=== PATIENT | female | born 1970 | race Caucasian/White ===

== ENCOUNTER → 2022-01-18 13:15 | Outpatient (CLI) | payer OTHER, SELFPAY ==
--- NOTE | 2022-01-18 13:20 | DI.RAD.S_ITS ---
PROCEDURE: XR HAND RT MIN 3V INDICATIONS: flexion deformity TECHNIQUE: 3 views of the hand(s) acquired. COMPARISON: None. FINDINGS: Bones: No fractures or dislocations. Carpal bones are normally aligned. No suspicious bony lesions. Soft tissues: No suspicious soft tissue calcifications. IMPRESSION: No right hand fracture or dislocation. No suspicious bony lesions. No gross bony erosive changes. No gross soft tissue abnormalities. Dictated by: Denny Chacko M.D. on 01/18/2022 at 14:59 Approved by: Denny Chacko M.D. on 01/18/2022 at 15:00
== END ==
PROVIDERS: PCP Family Medicine; Referring Provider Student in an Organized Health Care Education/Training Program; Visit Provider Student in an Organized Health Care Education/Training Program
DX: M21.241 Flexion deformity, right finger joints (principal)
CPT/HCPCS: 73130

== ENCOUNTER → 2022-01-19 10:01 | Outpatient (CLI) | payer OTHER, SELFPAY ==
[2022-01-19 12:16] LABS: Add Manual Diff / Slide Review NO; Basophils Absolute Auto 0 /uL (0-100); Eosinophils Absolute Auto 0 /uL (0-450); Eosinophils Percent Auto 0.8 % (2-4); Hematocrit 41.5 % (36-46); Hemoglobin 14.1 g/dL (12.0-16.0); Lymphocytes Absolute Auto 1600 /uL (1100-4500); Lymphocytes Percent Auto 33.4 % (25-40); Mean Corpuscular HGB Conc 33.9 % (30-36); Mean Corpuscular Hemoglobin 30.3 PG (26-34); Mean Corpuscular Volume 89.4 fL (80-100); Monocytes Absolute Auto 300 /uL (0-900); Monocytes Percent Auto 7.1 % (3-14); Neutrophils Absolute Auto 2700 /uL (1500-7000); Neutrophils Percent Auto 57.7 % (50-75); Platelet Count 232 X10^3/uL (150-400); Red Blood Cell Count 4.64 X10^6/uL (4.0-5.2); Red Cell Distribution Width 13.5 % (11.6-14.8); White Blood Cell Count 4.8 X10^3/uL (4.5-11.0)
[2022-01-19 12:53] LABS: Alanine Aminotransferase 20 IU/L (<35); Albumin 4.8 g/dL (3.5-5.0); Albumin Globulin Ratio 1.5 (1.0-2.8); Alkaline Phosphatase 68 U/L (38-126); Aspartate Aminotransferase 28 IU/L (14-36); BUN Creatinine Ratio 22.2 (6-22); Bilirubin Total 1.2 mg/dL (0.2-1.3); Blood Urea Nitrogen 18 mg/dL (7-17); Calcium 9.4 mg/dL (8.4-10.2); Carbon Dioxide 28 mmol/L (22-32); Chloride 100 mmol/L (98-107); Cholesterol 232 mg/dL (140-199); Estimated Glomerular Filt Rate > 60 mL/min (>60); Globulin 3.2 g/dL (1.7-4.1); Glucose 85 mg/dL (70-100); HDL Cholesterol 63 mg/dL (40-60); HEMOLYSIS < 15 (0-50); LDL Cholesterol Calculated 158 mg/dL (<100); Potassium 4.1 mmol/L (3.4-5.1); Sodium 139 mmol/L (137-145); Triglycerides 54 mg/dL (35-150)
== END ==
PROVIDERS: PCP Family Medicine; Referring Provider Student in an Organized Health Care Education/Training Program; Visit Provider Student in an Organized Health Care Education/Training Program
DX: Z13.29 Encounter for screening for other suspected endocrine disorder (principal); Z13.220 Encounter for screening for lipoid disorders; H00.019 Hordeolum externum unspecified eye, unspecified eyelid; M13.80 Other specified arthritis, unspecified site
CPT/HCPCS: 36415; 80053; 80061; 84443; 85025

== ENCOUNTER → 2022-11-02 14:33 | Outpatient (CLI) | payer OTHER, SELFPAY ==
--- NOTE | 2022-11-02 | DI.MRI.S_ITS ---
PROCEDURE: MR KNEE LT WO CON INDICATIONS: Left knee pain TECHNIQUE: Noncontrast sagittal PD fast spin echo and T2 fast spin echo with fat saturation, sagittal 3-D FLASH with fat saturation; coronal T1 spin echo and PD fast spin echo with fat saturation, and axial PD fast spin echo with fat saturation through the knee. COMPARISON: None. FINDINGS: Image quality: Excellent. Anterior Cruciate Ligament: Intact. Posterior Cruciate Ligament: Intact. Medial Collateral Ligament: Intact. Lateral Collateral Ligament: Intact. Medial Meniscus: Intact. Lateral Meniscus: Intact. Medial and Lateral Tendons: The semimembranosus tendon insertions and meniscocapsular junction appear intact. Visualized portions of the pes anserinus tendons appear normal. No abnormal bursal fluid. The long and short heads of the biceps femoris tendon appear intact. The popliteus tendon appears intact. No signs of posterolateral corner injury. Iliotibial band appears normal. Anterior Structures: The quadriceps and patellar tendons appear intact. No patellar subluxation. No femoral trochlear dysplasia or ventral trochlear prominence. No edema in the infrapatellar fat pad. Bones: No acute trabecular bone injury or fracture. Medial Femorotibial Cartilage: There is high-grade partial-thickness cartilage thinning in the weight-bearing portion of the medial femoral condyle and moderate thinning of the adjacent cartilage of the medial tibial plateau. Small marginal osteophytes are present. Lateral Femorotibial Cartilage: Mild surface cartilage irregularity is seen at the central portion of the lateral femorotibial compartment. Patellofemoral Cartilage: Moderate to high-grade partial-thickness cartilage thinning and irregularity is seen throughout the patellar cartilage and at the medial femoral trochlea and trochlear groove with small marginal osteophytes. Suspected full-thickness cartilage loss at the inferior medial femoral trochlea with subchondral cystic changes. Soft Tissues: A small amount of joint fluid is present trace medial popliteal cyst. The musculature surrounding the knee is normal in bulk. IMPRESSION: 1. Tricompartmental osteoarthrosis, which is most notable at the patellofemoral compartment where there is large area of grade 3 chondromalacia and suspected focal full-thickness cartilage loss at the medial femoral trochlea. Grade 2 chondromalacia is seen in the medial femorotibial compartment and there is mild grade 2 chondromalacia at the lateral compartment. 2. Cruciate and collateral ligaments are intact. No acute trabecular bone injury. No meniscal tear is seen. 3. Small joint effusion. Approved by: Jamil Juarez M.D. on 11/02/2022 at 17:15
--- NOTE | 2022-11-02 | DI.MG.S_ITS ---
BILATERAL DIGITAL SCREENING MAMMOGRAM 3D/2D WITH CAD: 11/02/2022 CLINICAL: Routine screening. Family history of breast cancer. No prior exams were available for comparison. Both breasts are heterogeneously dense, which may obscure small masses (category c / 51-75% glandular tissue). Current study was also evaluated with a Computer Aided Detection (CAD) system. No significant masses, calcifications, or other findings are seen in either breast. IMPRESSION: NEGATIVE There is no mammographic evidence of malignancy. A 1 year screening mammogram is recommended. Based on the Tyrer Cuzick model (a risk assessment model) the patient's lifetime risk is 12.6% and her 10 year risk is 3.3%. According to the ACR, ACS, and NCCN guidelines, an annual breast MRI exam along with mammogram is recommended if the patient's lifetime risk is 20% or greater. This exam was interpreted at Station ID: [id number]. NOTE: For mammograms, a report in lay terms will be sent to the patient. Approximately 15% of breast malignancies will not be visualized mammographically. In the management of a palpable breast mass, a negative mammogram must not discourage biopsy of a clinically suspicious lesion. Electronically Signed By: Pete walker/kaitlin:11/02/2022 17:45:54 letter sent: Normal Exam ACR BI-RADS Category 1: Negative 3341F
== END ==
PROVIDERS: PCP Nurse Practitioner Family; Referring Provider Nurse Practitioner Family; Visit Provider Nurse Practitioner Family
DX: M17.12 Unilateral primary osteoarthritis, left knee (principal); Z12.31 Encounter for screening mammogram for malignant neoplasm of breast; Z80.3 Family history of malignant neoplasm of breast; M25.462 Effusion, left knee; M94.262 Chondromalacia, left knee; M25.562 Pain in left knee
CPT/HCPCS: 73721; 77063; 77067

== ENCOUNTER → 2023-01-05 08:46 | Outpatient (CLI) | payer OTHER, SELFPAY ==
[2023-01-05 11:01] LABS: Alanine Aminotransferase 16 IU/L (<35); Albumin 4.6 g/dL (3.5-5.0); Albumin Globulin Ratio 1.6 (1.0-2.8); Alkaline Phosphatase 50 U/L (38-126); Aspartate Aminotransferase 25 IU/L (14-36); BUN Creatinine Ratio 18.9 (6-22); Bilirubin Total 0.5 mg/dL (0.2-1.3); Blood Urea Nitrogen 14 mg/dL (7-17); Calcium 9.9 mg/dL (8.4-10.2); Carbon Dioxide 28 mmol/L (22-32); Chloride 104 mmol/L (98-107); Cholesterol 198 mg/dL (140-199); Estimated Glomerular Filt Rate > 60 mL/min (>60); Globulin 2.9 g/dL (1.7-4.1); Glucose 92 mg/dL (70-100); HDL Cholesterol 61 mg/dL (40-60); HEMOLYSIS < 15 (0-50); LDL Cholesterol Calculated 128 mg/dL (<100); Potassium 4.3 mmol/L (3.4-5.1); Sodium 139 mmol/L (137-145); Total Protein 7.5 g/dL (6.3-8.2); Triglycerides 46 mg/dL (35-150)
[2023-01-05 11:30] LABS: TSH w/ Reflex to FT4 1.62 uIU/mL (0.47-4.68)
[2023-01-06 16:48] LABS: Hep C Virus Ab w/Reflex Quant NEGATIVE s/c (NEGATIVE)
== END ==
PROVIDERS: PCP Nurse Practitioner Family; Referring Provider Nurse Practitioner Family; Visit Provider Nurse Practitioner Family
DX: E78.5 Hyperlipidemia, unspecified (principal); Z11.59 Encounter for screening for other viral diseases; R00.1 Bradycardia, unspecified
CPT/HCPCS: 36415; 80053; 80061; 84443; 86803

== ENCOUNTER → 2023-10-25 07:31 | Outpatient (CLI) | payer OTHER, SELFPAY ==
[2023-10-25 08:31] LABS: Alanine Aminotransferase 17 IU/L (<35); Albumin 4.4 g/dL (3.5-5.0); Albumin Globulin Ratio 1.8 (1.0-2.8); Alkaline Phosphatase 56 U/L (38-126); Aspartate Aminotransferase 25 IU/L (14-36); BUN Creatinine Ratio 21.9 (6-22); Bilirubin Total 0.8 mg/dL (0.2-1.3); Blood Urea Nitrogen 16 mg/dL (7-17); Calcium 9.5 mg/dL (8.4-10.2); Carbon Dioxide 26 mmol/L (22-32); Chloride 106 mmol/L (98-107); Cholesterol 194 mg/dL (140-199); Estimated Glomerular Filt Rate > 60 mL/min (>60); Globulin 2.5 g/dL (1.7-4.1); Glucose 95 mg/dL (70-100); HDL Cholesterol 63 mg/dL (40-60); HEMOLYSIS < 15 (0-50); LDL Cholesterol Calculated 114 mg/dL (<100); Potassium 4.1 mmol/L (3.4-5.1); Sodium 140 mmol/L (137-145); Total Protein 6.9 g/dL (6.3-8.2); Triglycerides 85 mg/dL (35-150)
[2023-10-25 09:21] LABS: Hep C Virus Ab w/Reflex Quant NEGATIVE s/c (NEGATIVE)
[2023-10-25 10:50] LABS: TSH w/ Reflex to FT4 1.34 uIU/mL (0.47-4.68)
== END ==
PROVIDERS: PCP Nurse Practitioner Family; Referring Provider Nurse Practitioner Family; Visit Provider Nurse Practitioner Family
DX: E78.5 Hyperlipidemia, unspecified (principal); Z11.59 Encounter for screening for other viral diseases; R00.1 Bradycardia, unspecified
CPT/HCPCS: 36415; 80053; 80061; 84443; 86803

== ENCOUNTER → 2023-11-01 15:35 | Outpatient (CLI) | payer OTHER, SELFPAY ==
--- NOTE | 2023-11-01 15:38 | DI.RAD.S_ITS ---
PROCEDURE: XR HIP W PEL IF DONE RT 2V INDICATIONS: PAIN OF RIGHT HIP TECHNIQUE: AP pelvis with lateral view(s) of the right hip(s). COMPARISON: None. FINDINGS: Bones: No fractures or dislocations. Pelvic ring appears intact. No suspicious bony lesions. Soft tissues: The visualized bowel gas pattern is normal. No suspicious soft tissue calcifications. IMPRESSION: No acute bony abnormality. Dictated by: Mckenna Bowman M.D. on 11/01/2023 at 17:00 Approved by: Mckenna Bowman M.D. on 11/01/2023 at 17:01
--- NOTE | 2023-11-01 15:40 | DI.CT.S_ITS ---
PROCEDURE: CT KIDNEY URETER BLADDER (KUB) INDICATIONS: UTI,HYPERLIPIDEMIA TECHNIQUE: Axial sections were acquired from the lung bases to the pubic symphysis. Coronal and sagittal reformats were performed. For radiation dose reduction, the following was used: automated exposure control, adjustment of mA and/or kV according to patient size. COMPARISON: None. FINDINGS: Image quality: Diagnostic. Lower Chest: No significant findings. URINARY: Right Kidney: No stones or hydronephrosis. No perinephric fat stranding. Right Ureter: No hydroureter. Left Kidney: No stones or hydronephrosis. No perinephric fat stranding. Left Ureter: No hydroureter. Bladder: Mild circumferential wall thickening. No stones. ABDOMEN: Liver: Ill-defined 2.5 cm hypoattenuating lesion is seen in the inferior right hepatic lobe (31/2). Gallbladder: Gallbladder is mildly contracted. No gallstones. Biliary ducts: No biliary dilation. Pancreas: No ductal dilation. Spleen: Size is within normal limits. Adrenal Glands: No adrenal nodules. Stomach and Bowel: Normal colonic caliber, without significant wall thickening. Moderate colonic stool. Normal appendix. Small bowel loops and stomach are unremarkable. Peritoneum: No abnormal intraperitoneal fluid. No free air. Ventral Wall: No hernia. Abdominal Nodes: No enlarged retroperitoneal or mesenteric lymph nodes. Vessels: Aorta and inferior vena cava are normal in size. PELVIS: Pelvic Organs: Unremarkable. Pelvic Nodes: Unremarkable. Miscellaneous: No inguinal hernias are seen. Bones: Unremarkable. IMPRESSION: 1. Mild circumferential bladder wall thickening can be seen in the setting of cystitis. 2. No obstructing stones or hydronephrosis. No perinephric fat stranding. 3. Indeterminate 2.5 cm lesion in the right hepatic lobe. Recommend contrast-enhanced liver protocol MRI or CT for further evaluation. Approved by: Jamil Juarez M.D. on 11/01/2023 at 17:03
== END ==
PROVIDERS: PCP Nurse Practitioner Family; Referring Provider Nurse Practitioner Family; Visit Provider Nurse Practitioner Family
DX: M25.551 Pain in right hip (principal); N39.0 Urinary tract infection, site not specified; E78.5 Hyperlipidemia, unspecified
CPT/HCPCS: 73502; 74176

== ENCOUNTER → 2023-11-08 10:21 | Outpatient (CLI) | payer OTHER, SELFPAY ==
--- NOTE | 2023-11-08 10:23 | DI.MG.S_ITS ---
BILATERAL DIGITAL SCREENING MAMMOGRAM 3D/2D WITH CAD: 11/08/2023 CLINICAL: Routine screening. Family history of breast cancer. Comparison is made to exam dated: 11/02/2022 mammogram - [facility]. Both breasts are heterogeneously dense, which may obscure small masses (category c / 51-75% glandular tissue). Current study was also evaluated with a Computer Aided Detection (CAD) system. No significant masses, calcifications, or other findings are seen in either breast. There has been no significant interval change. IMPRESSION: NEGATIVE There is no mammographic evidence of malignancy. A 1 year screening mammogram is recommended. Based on the Tyrer Cuzick model (a risk assessment model) the patient's lifetime risk is 12.5% and her 10 year risk is 3.4%. According to the ACR, ACS, and NCCN guidelines, an annual breast MRI exam along with mammogram is recommended if the patient's lifetime risk is 20% or greater. This exam was interpreted at Station ID: [id number]. NOTE: For mammograms, a report in lay terms will be sent to the patient. Approximately 15% of breast malignancies will not be visualized mammographically. In the management of a palpable breast mass, a negative mammogram must not discourage biopsy of a clinically suspicious lesion. Electronically Signed By: Dimitrios roberto/kaitlin:11/08/2023 12:54:58 letter sent: Normal Exam ACR BI-RADS Category 1: Negative 3341F
[2023-11-08 11:59] LABS: Appearance Urine UA CLEAR; Bilirubin Urine UA NEGATIVE (NEGATIVE); Color Urine UA YELLOW; Glucose Urine UA NEGATIVE (Negative); Ketones Urine UA NEGATIVE (NEGATIVE); Leukocyte Esterase Urine UA NEGATIVE (NEGATIVE); Nitrite Urine UA NEGATIVE (Negative); Occult Blood Urine UA NEGATIVE (Negative); Protein Urine UA NEGATIVE (Negative); Specific Gravity Urine UA <=1.005 (1.000-1.035); Urobilinogen Urine UA 0.2 E.U./dL (0.2)
[2023-11-08 12:08] LABS: Urine Volume 10mL (spun); pH Urine UA 5.5 (4.5-8.0)
[2023-11-08 12:09] LABS: Bacteria Urine None Seen; Culture Indicated Urine Cult Not Indicated; RBC Urine None Seen (0-5/HPF); Squamous Epithelial Cell Urine None Seen (0-5/HPF); WBC Urine None Seen (0-5/HPF)
== END ==
PROVIDERS: PCP Nurse Practitioner Family; Referring Provider Nurse Practitioner Family; Visit Provider Nurse Practitioner Family
DX: Z12.31 Encounter for screening mammogram for malignant neoplasm of breast (principal); Z80.3 Family history of malignant neoplasm of breast; K76.9 Liver disease, unspecified; D18.09 Hemangioma of other sites; K76.89 Other specified diseases of liver
CPT/HCPCS: 74183; 77063; 77067; 81001; 87086; A9579

== ENCOUNTER → 2023-11-08 13:32 | Outpatient (CLI) | payer OTHER, SELFPAY ==
--- NOTE | 2023-11-08 13:33 | DI.MRI.S_ITS ---
PROCEDURE: MR ABDOMEN LIVER PROTOCOL INDICATIONS: LIVER DISEASE TECHNIQUE: Coronal HASTE, axial 2D FLASH in- and [id number]; axial breath-hold T2 FSE. Dynamic axial VIBE during the administration of contrast; post-contrast coronal VIBE or 2D FLASH with fat saturation from the hepatic dome to the iliac crests. Optional diffusion weighted imaging and ADC may be performed. COMPARISON: [facility], CT, CT KIDNEY URETER BLADDER (KUB), 11/01/2023, 15:49. FINDINGS: Image quality: Diagnostic. Lung bases: Unremarkable. Liver: 2.7 cm T2 intermediate, T1 hypointense lesion with peripheral, centripetal filling consistent with a benign hemangioma. Additional punctate T2 hyperintense cysts are present. Gallbladder: No gallstones or wall thickening. Biliary ducts: No biliary dilation. Pancreas: No ductal dilation. Spleen: Size is within normal limits. Adrenal Glands: No adrenal nodules. Kidneys and Ureters: No hydronephrosis. No solid mass. No complex renal cystic lesion which requires follow up. Stomach and Bowel: Normal colonic caliber, without significant wall thickening. Peritoneum: No abnormal intraperitoneal fluid. No free air. Ventral Wall: No hernia. Abdominal Nodes: No retroperitoneal or mesenteric adenopathy by size criteria. Vessels: Aorta and inferior vena cava are normal in size. Bones: No aggressive osseous abnormality. IMPRESSION: Benign 2.7 cm right hepatic lobe hemangioma. Additional benign punctate cysts. No further follow-up is indicated. Dictated by: Smith Bolaños M.D. on 11/08/2023 at 16:39 Approved by: Smith Bolaños M.D. on 11/08/2023 at 16:41
== END ==
PROVIDERS: PCP Nurse Practitioner Family; Referring Provider Nurse Practitioner Family; Visit Provider Nurse Practitioner Family
DX: K76.9 Liver disease, unspecified (principal); D18.09 Hemangioma of other sites; K76.89 Other specified diseases of liver; Z12.31 Encounter for screening mammogram for malignant neoplasm of breast; Z80.3 Family history of malignant neoplasm of breast
CPT/HCPCS: 74183; 81001; 87086; A9579

== ENCOUNTER → 2023-11-15 14:40 | Outpatient (CLI) | payer OTHER, SELFPAY ==
--- NOTE | 2023-11-15 14:42 | DI.CT.S_ITS ---
PROCEDURE: CT CHEST WO CON INDICATIONS: SINGLE PULMONARY NODULE TECHNIQUE: Noncontrast 5 mm thick sections acquired from the pulmonary apices to the posterior costophrenic angles. 1 mm lung window, 5 mm thick coronal and sagittal and 7 mm axial MIP reformats were then acquired. For radiation dose reduction, the following was used: automated exposure control, adjustment of mA and/or kV according to patient size. COMPARISON: None. FINDINGS: Image quality: Diagnostic. Lower Neck: No enlarged lymph nodes. Thyroid: No thyroid nodules which require sonographic follow up, per consensus guidelines. Axillae: No enlarged lymph nodes. Chest Wall: Unremarkable. Bones: Unremarkable. Lungs and Pleura: No pneumothorax or pleural effusions. Stable 4 x 5 millimeter solid nodule in the right upper lobe (series 3, image 96). Heart: Heart size is normal. No pericardial effusion. Thoracic Vessels: The aorta and pulmonary arteries demonstrate normal size. Mediastinum and Marylin: No enlarged lymph nodes. Esophagus: No wall thickening. No hiatal hernia. Upper Abdomen: Visualized upper abdomen solid organs and bowel loops appear normal. IMPRESSION: 4 x 5 millimeter solid nodule in the right upper lobe. Consider 12 month follow-up if at high risk for developing lung cancer, per Fleischner Society guidelines. Dictated by: Smith Bolaños M.D. on 11/16/2023 at 18:44 Approved by: Smith Bolaños M.D. on 11/17/2023 at 11:41
== END ==
LOC: CT 14:41
PROVIDERS: PCP Family Medicine; Referring Provider Nurse Practitioner Family; Visit Provider Nurse Practitioner Family
DX: R91.1 Solitary pulmonary nodule (principal)
CPT/HCPCS: 71250

== ENCOUNTER → 2023-11-17 12:28 | Outpatient (CLI) | payer OTHER, SELFPAY | PROVIDERS: PCP Family Medicine; Visit Provider Nurse Practitioner Family | DX: S61.501A Unspecified open wound of right wrist, initial encounter (principal) | CPT/HCPCS: 87070; 87205 ==

== ENCOUNTER → 2024-08-23 08:05 | Outpatient (CLI) | payer OTHER, SELFPAY ==
[2024-08-23 08:29] LABS: Add Manual Diff / Slide Review NO; Basophils Absolute Auto 0 /uL (0-100); Basophils Percent Auto 0.8 % (0-2); Eosinophils Absolute Auto 0 /uL (0-450); Eosinophils Percent Auto 0.4 % (2-4); Hematocrit 41.1 % (36-46); Hemoglobin 13.7 g/dL (12.0-16.0); Lymphocytes Absolute Auto 1400 /uL (1100-4500); Lymphocytes Percent Auto 30.3 % (25-40); Mean Corpuscular HGB Conc 33.5 % (30-36); Mean Corpuscular Hemoglobin 31.3 PG (26-34); Mean Corpuscular Volume 93.6 fL (80-100); Monocytes Absolute Auto 300 /uL (0-900); Neutrophils Absolute Auto 2900 /uL (1500-7000); Neutrophils Percent Auto 61.5 % (50-75); Platelet Count 219 X10^3/uL (150-400); Red Blood Cell Count 4.39 X10^6/uL (4.0-5.2); Red Cell Distribution Width 13.6 % (11.6-14.8); White Blood Cell Count 4.7 X10^3/uL (4.5-11.0)
[2024-08-23 08:39] LABS: Alanine Aminotransferase 16 IU/L (<35); Albumin 4.7 g/dL (3.5-5.0); Albumin Globulin Ratio 2.1 (1.0-2.8); Alkaline Phosphatase 45 U/L (38-126); Aspartate Aminotransferase 25 IU/L (14-36); Bilirubin Total 1.2 mg/dL (0.2-1.3); Blood Urea Nitrogen 16 mg/dL (7-17); Calcium 9.3 mg/dL (8.4-10.2); Carbon Dioxide 26 mmol/L (22-32); Chloride 104 mmol/L (98-107); Cholesterol 176 mg/dL (140-199); Estimated Glomerular Filt Rate > 60 mL/min (>60); Globulin 2.2 g/dL (1.7-4.1); Glucose 98 mg/dL (70-99); HDL Cholesterol 63 mg/dL (40-60); HEMOLYSIS < 15 (0-50); LDL Cholesterol Calculated 95 mg/dL (<100); Potassium 4.2 mmol/L (3.4-5.1); Sodium 139 mmol/L (137-145); Total Protein 6.9 g/dL (6.3-8.2); Triglycerides 90 mg/dL (35-150)
[2024-08-23 09:08] LABS: TSH w/ Reflex to FT4 1.17 uIU/mL (0.47-4.68)
== END ==
PROVIDERS: PCP Family Medicine; Referring Provider Family Medicine; Visit Provider Family Medicine
DX: E78.5 Hyperlipidemia, unspecified (principal); M19.90 Unspecified osteoarthritis, unspecified site; Z13.29 Encounter for screening for other suspected endocrine disorder
CPT/HCPCS: 36415; 80053; 80061; 84443; 85025

== ENCOUNTER → 2024-11-09 07:29 | Outpatient (CLI) | payer OTHER, SELFPAY ==
--- NOTE | 2024-11-09 07:31 | DI.MG.S_ITS ---
MM screening mammo BI: 11/09/2024. BI-RADS: 1 CLINICAL: 54-year old female for bilateral screening mammogram. Tyrer-Cuzick lifetime risk of 8.1%. No personal or first-degree family history of breast cancer. Current reported family history of breast cancer: maternal grandmother. PRIOR EXAMS 11/08/2023, 11/02/2022. MAMMOGRAPHY TECHNIQUE: 2D and 3D (tomosynthesis) digital mammographic views obtained, with additional images as needed for full coverage. Current study was also evaluated with a Computer Aided Detection (CAD) system. DENSITY C. The breasts are heterogeneously dense, which may obscure small masses. MAMMOGRAPHY FINDINGS Bilateral: No suspicious mass, asymmetry, microcalcification, or other abnormality seen. IMPRESSION: * No evidence of malignancy. RECOMMENDATIONS Bilateral * Annual screening mammography. OVERALL ASSESSMENT CATEGORY BI-RADS-1: Negative. The [employer] recommends annual screening mammography beginning at age 40 for women with average risk of breast cancer. ELECTRONICALLY SIGNED: Peggy Moore M.D. on 11/09/2024 at 10:07:11 PM PT Interpreting Station ID: [id number]
== END ==
PROVIDERS: PCP Family Medicine; Referring Provider Family Medicine; Visit Provider Family Medicine
DX: Z12.31 Encounter for screening mammogram for malignant neoplasm of breast (principal); R92.333 Mammographic heterogeneous density, bilateral breasts
CPT/HCPCS: 77063; 77067

== ENCOUNTER → 2024-11-22 15:49 | Outpatient (CLI) | payer OTHER, SELFPAY ==
--- NOTE | 2024-11-22 15:50 | DI.RAD.S_ITS ---
PROCEDURE: XR HAND LT 2V INDICATIONS: left hand pain TECHNIQUE: Two views of the left hand were) acquired. COMPARISON: [facility], , XR HAND RT MIN 3V, 01/18/2022, 13:23. FINDINGS: Bones: There are no osseous abnormalities Joints: Mild radiocarpal, 1st CMC and 1st MCP degeneration noted . Soft tissues: No soft tissue abnormality. IMPRESSION: Mild degeneration Dictated by: Camden Fong M.D. on 11/23/2024 at 7:08 Approved by: Camden Fong M.D. on 11/23/2024 at 7:09
== END ==
PROVIDERS: PCP Family Medicine; Referring Provider Family Medicine; Visit Provider Family Medicine
DX: M18.12 Unilateral primary osteoarthritis of first carpometacarpal joint, left hand (principal); M19.042 Primary osteoarthritis, left hand; M19.032 Primary osteoarthritis, left wrist; M79.642 Pain in left hand
CPT/HCPCS: 73120

== ENCOUNTER 2024-12-03 14:06 | Emergency (ER) | payer OTHER, SELFPAY ==
[2024-12-03] VITALS (79 sets, daily range): BP systolic 109–146; BP diastolic 61–83; PULSE 55–72; RESP 12–42; TEMP 36.4; O2SAT 96–100; BMI 25.0
--- NOTE | 2024-12-03 14:39 | DI.RAD.S_ITS ---
PROCEDURE: XR CHEST 1V INDICATIONS: Chest Pain TECHNIQUE: One view of the chest was acquired. COMPARISON: None. FINDINGS: Surgical changes and devices: None. Lungs and pleura: Lungs are clear. No pleural effusions or pneumothorax. Mediastinum: Mediastinal contours appear normal. Heart size is normal. Bones and chest wall: No suspicious bony lesions. Overlying soft tissues appear unremarkable. IMPRESSION: No acute pulmonary process. Dictated by: Zoya Washington M.D. on 12/03/2024 at 15:26 Approved by: Zoya Washington M.D. on 12/03/2024 at 15:26
--- NOTE | 2024-12-03 14:52 | EKG_ITS ---
[facility] [address] [address] Test Date: 2024-12-03 Pat Name: Shikha Contreras Department: [facility] Room: Gender: Female Registered Dietitian: FITO : 1970 Requested By: Order Number: [id number] Reading MD: Nikhil Meneses Measurements Intervals [place] Rate: 58 P: SC: 144 QRS: 117 QRSD: 80 T: 126 QT: 442 QTc: 433 Interpretive Statements Sinus bradycardia Right axis deviation Electronically Signed On 12-05-2024 8:07:27 PDT by Nikhil Meneses
[2024-12-03 15:01] LABS: Add Manual Diff / Slide Review NO; Hematocrit 39.3 % (36-46); Hemoglobin 13.6 g/dL (12.0-16.0); Lymphocytes Absolute Auto 1900 /uL (1100-4500); Mean Corpuscular HGB Conc 34.5 % (30-36); Mean Corpuscular Hemoglobin 31.6 PG (26-34); Mean Corpuscular Volume 91.7 fL (80-100); Platelet Count 251 X10^3/uL (150-400)
[2024-12-03 15:08] LABS: INR 1.0 (0.9-1.3); Prothrombin Time 11.5 SECONDS (9.4-12.5)
[2024-12-03 15:11] LABS: PTT Partial Thromboplastin Tim 31 SECONDS (25.1-36.5)
[2024-12-03 15:12] LABS: Alanine Aminotransferase 17 IU/L (<35); Albumin 5.1 g/dL (3.5-5.0); Albumin Globulin Ratio 1.8 (1.0-2.8); Alkaline Phosphatase 50 U/L (38-126); Blood Urea Nitrogen 13 mg/dL (7-17); Calcium 9.3 mg/dL (8.4-10.2); Carbon Dioxide 22 mmol/L (22-32); Chloride 104 mmol/L (98-107); Creatine Kinase 165 U/L (30-135); Estimated Glomerular Filt Rate > 60 mL/min (>60); Globulin 2.8 g/dL (1.7-4.1); Glucose 92 mg/dL (70-99); HEMOLYSIS < 15 (0-50); Lipase 88 U/L (23-300); Magnesium 1.9 mg/dL (1.6-2.3); Potassium 3.6 mmol/L (3.4-5.1); Sodium 137 mmol/L (137-145); Total Protein 7.9 g/dL (6.3-8.2)
[2024-12-03 15:24] LABS: NT-proBNP (BNP-Adult 18+) 770 pg/mL (<125)
[2024-12-03 15:27] LABS: Troponin I 0.415 ng/mL (0.01-0.034)
--- NOTE | 2024-12-03 15:29 | ED.CHESTPAIN ---
HPI - Chest Pain General Chief Complaint: Chest Pain Stated Complaint: SOB Time Seen by Provider: 12/03/24 14:57 Source: patient Mode of arrival: Ambulatory History of Present Illness HPI narrative: Patient is a 54-year-old female healthy takes no medications presenting today with chest pain. She reports that she went diving yesterday for 66 minutes at 60 ft she had no complications. This morning she went to her regular exercise class started noticing some chest discomfort and heaviness. It has kind of persisted throughout the day she is also short of breath and experiencing chest heaviness now. It is nonradiating. She has no family history of UT. she has a nonsmoker Related Data Previous Rx's ?Medication ?Instructions ?Recorded semaglutide 0.25 mg or 0.5 mg (2 0.25 mg (0.368 mL) SUBCUT QWEEK #6 12/27/23 mg/3 mL) subcutaneous pen injector mL estradiol 0.01% (0.1 mg/gram) 1 g vaginal DAILY #42.5 grams 09/27/24 vaginal cream (Estrace) estradiol 0.05 mg/24 hr semiweekly 1 patch transdermal 2XW #24 ea 11/13/24 transdermal patch (Vivelle-Dot) progesterone micronized 200 mg 200 mg PO BEDTIME 30 days #90 caps 11/13/24 capsule Allergies Allergy/AdvReac Type Severity Reaction Status Date / Time No Known Drug Allergies Allergy Verified 11/22/24 15:21 Patient History Medical History Precancerous skin lesion (~10/2023) Osteoarthritis Shoulder pain (~2021) Chicken pox (~1990) Menopausal symptoms Recurrent UTI Surgical History Anesthesia History of colonoscopy (~2017) History of cone biopsy of uterine cervix History of tonsillectomy Family History Grandfather History of heart disease Grandmother Breast cancer Dementia Grandfather Suicide Social History Smoking Status: Never smoker Smoking Status: Never smoker Exam Initial Vital Signs Initial Vital Signs: Vital Signs Temperature 97.6 F 12/03/24 14:35 Pulse Rate 64 12/03/24 14:35 Respiratory Rate 16 12/03/24 14:35 Blood Pressure 144/74 H 12/03/24 14:35 Pulse Oximetry 100 12/03/24 14:35 Oxygen Delivery Method Room Air 12/03/24 14:35 GENERAL: Alert very pleasant 54-year-old female and in no acute distress. HEENT: Head atraumatic,EOMI, pupils reactive, face symmetric, moist mucous membranes CARDIOVASCULAR: Regular rate and rhythm without murmurs, rubs or gallops. RESPIRATORY: Breath sounds equal bilaterally, no wheezes rales or rhonchi. ABDOMEN: Soft, nontender. Normoactive bowel sounds all 4 quadrants. No guarding or rebound. EXTREMITIES: Normal range of motion, no clubbing or edema. Neurovascularly intact NEUROLOGICAL: Alert and oriented x4.Normal gait and speech. Cranial nerves II through XII grossly intact. SKIN: Warm, dry, no laceration, no petechiae, no rashes or lesions. Course Orders Ordered: ED Orders 12/03/24 14:39 XR chest 1V Stat EKG-12 Lead Stat 12/03/24 14:55 Complete Blood Count AUTO DIFF Stat Comprehensive Metabolic Panel Stat D Dimer Stat Lipase Stat Magnesium Stat NT-proBNP (BNP-Adult 18+) Stat PTT Partial Thromboplastin Yandel Stat Prothrombin Time INR Stat Troponin & CK Cardiac Panel Stat 12/03/24 15:28 EKG-12 Lead Stat 12/03/24 15:57 Prothrombin Time INR Routine Trop I [Troponin I] Stat 12/03/24 18:55 Trop I [Troponin I] Stat 12/03/24 19:00 EKG-12 Lead Stat 12/03/24 22:13 PTT Partial Thromboplastin Yandel Stat Troponin I Stat Discontinued Medications Aspirin (Aspirin 81 Mg Chew Tab) 324 mg PO NOW ONE Stop: 12/03/24 14:40 Last Admin: 12/03/24 16:11 Dose: Not Given Documented By: NARCISA Heparin Sodium (Porcine) (Heparin 5,000 Unit/Ml Vial) 3,500 unit 60 unit/kg (3500 unit) IV NOW ONE Stop: 12/03/24 15:36 Last Admin: 12/03/24 16:16 Dose: 3,500 unit Documented By: NARCISA Heparin Sodium/Dextrose (Heparin Drip) 25,000 unit in 500 mls @ 14.696 mls/hr IV CONT KHAI; Protocol Last Admin: 12/03/24 16:15 Dose: 12 units/kg/hr, 14.7 mls/hr Documented By: NARCISA Co-signed By: ADAM Nitroglycerin (Nitroglycerin 0.4 Mg Sl Tab) 0.4 mg SL [id number] PRN PRN Reason: Chest Pain Last Admin: 12/03/24 16:37 Dose: 0.4 mg Documented By: Admin: 12/03/24 16:27 Dose: 0.4 mg Documented By: Admin: 12/03/24 16:23 Dose: 0.4 mg Documented By: NARCISA Vital Signs Vital signs: Vital Signs - 8 hr 12/03/24 14:35 12/03/24 15:47 12/03/24 15:49 Temperature 97.6 F Pulse Rate 64 63 Respiratory Rate 16 26 H Blood Pressure 144/74 H 124/75 Pulse Oximetry 100 100 Oxygen Delivery Method Room Air 12/03/24 15:49 12/03/24 16:00 12/03/24 16:01 Temperature Pulse Rate 60 55 L Respiratory Rate 27 H 25 H Blood Pressure 131/67 Pulse Oximetry 100 100 Oxygen Delivery Method 12/03/24 16:01 12/03/24 16:22 12/03/24 16:22 Temperature Pulse Rate 55 L 60 Respiratory Rate 20 34 H Blood Pressure 124/77 Pulse Oximetry 100 100 Oxygen Delivery Method 12/03/24 16:23 12/03/24 16:25 12/03/24 16:25 Temperature Pulse Rate 60 72 Respiratory Rate 29 H Blood Pressure 124/77 118/63 Pulse Oximetry 98 Oxygen Delivery Method 12/03/24 16:27 12/03/24 16:30 12/03/24 16:30 Temperature Pulse Rate 66 65 Respiratory Rate 13 Blood Pressure 118/63 118/69 Pulse Oximetry 97 Oxygen Delivery Method 12/03/24 16:35 12/03/24 16:35 12/03/24 16:37 Temperature Pulse Rate 70 71 Respiratory Rate 19 Blood Pressure 116/68 111/66 Pulse Oximetry 97 Oxygen Delivery Method 12/03/24 16:40 12/03/24 16:40 12/03/24 16:45 Temperature Pulse Rate 69 Respiratory Rate 23 Blood Pressure 111/66 111/61 Pulse Oximetry 97 Oxygen Delivery Method 12/03/24 16:45 12/03/24 16:50 12/03/24 16:50 Temperature Pulse Rate 70 65 Respiratory Rate 20 26 H Blood Pressure 112/68 Pulse Oximetry 96 97 Oxygen Delivery Method 12/03/24 16:55 12/03/24 16:55 12/03/24 17:00 Temperature Pulse Rate 61 Respiratory Rate 21 Blood Pressure 112/69 115/74 Pulse Oximetry 98 Oxygen Delivery Method 12/03/24 17:00 12/03/24 17:05 12/03/24 17:05 Temperature Pulse Rate 66 67 Respiratory Rate 32 H 23 Blood Pressure 121/76 Pulse Oximetry 98 99 Oxygen Delivery Method 12/03/24 17:10 12/03/24 17:10 12/03/24 17:15 Temperature Pulse Rate 71 69 Respiratory Rate 37 H 23 Blood Pressure 115/72 Pulse Oximetry 99 99 Oxygen Delivery Method 12/03/24 17:15 12/03/24 17:20 12/03/24 17:20 Temperature Pulse Rate 69 Respiratory Rate 21 Blood Pressure 114/73 110/72 Pulse Oximetry 99 Oxygen Delivery Method 12/03/24 17:25 12/03/24 17:25 12/03/24 17:30 Temperature Pulse Rate 65 67 Respiratory Rate 23 29 H Blood Pressure 114/77 Pulse Oximetry 98 98 Oxygen Delivery Method 12/03/24 17:30 12/03/24 17:35 12/03/24 17:35 Temperature Pulse Rate 62 Respiratory Rate 15 Blood Pressure 127/75 117/68 Pulse Oximetry 98 Oxygen Delivery Method 12/03/24 17:40 12/03/24 17:40 12/03/24 17:45 Temperature Pulse Rate 60 Respiratory Rate 25 H Blood Pressure 116/70 115/73 Pulse Oximetry 99 Oxygen Delivery Method 12/03/24 17:45 12/03/24 17:50 12/03/24 17:50 Temperature Pulse Rate 62 62 Respiratory Rate 21 18 Blood Pressure 109/73 Pulse Oximetry 99 99 Oxygen Delivery Method 12/03/24 17:55 12/03/24 17:55 12/03/24 18:00 Temperature Pulse Rate 59 L Respiratory Rate 18 Blood Pressure 113/73 111/73 Pulse Oximetry 98 Oxygen Delivery Method 12/03/24 18:00 12/03/24 18:05 12/03/24 18:05 Temperature Pulse Rate 61 69 Respiratory Rate 37 H 26 H Blood Pressure 117/75 Pulse Oximetry 98 99 Oxygen Delivery Method 12/03/24 18:10 12/03/24 18:10 12/03/24 18:16 Temperature Pulse Rate 72 Respiratory Rate 24 Blood Pressure 109/75 128/68 Pulse Oximetry 99 Oxygen Delivery Method 12/03/24 18:16 12/03/24 18:20 12/03/24 18:20 Temperature Pulse Rate 62 62 Respiratory Rate 26 H 26 H Blood Pressure 114/69 Pulse Oximetry 99 97 Oxygen Delivery Method 12/03/24 18:25 12/03/24 18:25 12/03/24 18:30 Temperature Pulse Rate 59 L Respiratory Rate 18 Blood Pressure 112/69 122/74 Pulse Oximetry 98 Oxygen Delivery Method 12/03/24 18:30 12/03/24 18:35 12/03/24 18:35 Temperature Pulse Rate 62 61 Respiratory Rate 17 27 H Blood Pressure 117/69 Pulse Oximetry 98 97 Oxygen Delivery Method 12/03/24 18:40 12/03/24 18:40 12/03/24 18:45 Temperature Pulse Rate 60 Respiratory Rate 23 Blood Pressure 115/74 115/75 Pulse Oximetry 99 Oxygen Delivery Method 12/03/24 18:45 12/03/24 18:50 12/03/24 18:50 Temperature Pulse Rate 68 59 L Respiratory Rate 29 H 19 Blood Pressure 111/69 Pulse Oximetry 98 97 Oxygen Delivery Method 12/03/24 18:55 12/03/24 18:55 12/03/24 19:00 Temperature Pulse Rate 61 Respiratory Rate 22 Blood Pressure 131/69 128/70 Pulse Oximetry 98 Oxygen Delivery Method 12/03/24 19:00 12/03/24 19:05 12/03/24 19:05 Temperature Pulse Rate 62 60 Respiratory Rate 17 20 Blood Pressure 117/67 Pulse Oximetry 99 97 Oxygen Delivery Method 12/03/24 19:10 12/03/24 19:10 12/03/24 19:15 Temperature Pulse Rate 61 Respiratory Rate 42 H Blood Pressure 121/70 120/77 Pulse Oximetry 98 Oxygen Delivery Method 12/03/24 19:15 12/03/24 19:20 12/03/24 19:20 Temperature Pulse Rate 63 67 Respiratory Rate 29 H 22 Blood Pressure 132/83 Pulse Oximetry 98 98 Oxygen Delivery Method 12/03/24 19:25 12/03/24 19:25 12/03/24 19:30 Temperature Pulse Rate 60 Respiratory Rate 24 Blood Pressure 118/79 120/79 Pulse Oximetry 97 Oxygen Delivery Method 12/03/24 19:30 12/03/24 19:35 12/03/24 19:35 Temperature Pulse Rate 60 58 L Respiratory Rate 18 22 Blood Pressure 114/69 Pulse Oximetry 96 97 Oxygen Delivery Method 12/03/24 19:40 12/03/24 19:40 12/03/24 19:46 Temperature Pulse Rate 61 Respiratory Rate 35 H Blood Pressure 114/72 135/65 Pulse Oximetry 97 Oxygen Delivery Method 12/03/24 19:46 12/03/24 19:50 12/03/24 19:50 Temperature Pulse Rate 64 63 Respiratory Rate 29 H 18 Blood Pressure 133/71 Pulse Oximetry 98 97 Oxygen Delivery Method 12/03/24 19:56 12/03/24 19:56 12/03/24 20:00 Temperature Pulse Rate 61 Respiratory Rate 20 Blood Pressure 121/71 115/71 Pulse Oximetry 98 Oxygen Delivery Method 12/03/24 20:00 12/03/24 20:05 12/03/24 20:05 Temperature Pulse Rate 61 59 L Respiratory Rate 21 16 Blood Pressure 117/80 Pulse Oximetry 97 97 Oxygen Delivery Method 12/03/24 20:12 12/03/24 20:12 12/03/24 20:15 Temperature Pulse Rate 65 66 Respiratory Rate 13 25 H Blood Pressure 146/76 H Pulse Oximetry 99 98 Oxygen Delivery Method 12/03/24 20:15 12/03/24 20:20 12/03/24 20:20 Temperature Pulse Rate 63 Respiratory Rate 25 H Blood Pressure 140/74 130/77 Pulse Oximetry 98 Oxygen Delivery Method 12/03/24 20:25 12/03/24 20:25 12/03/24 20:30 Temperature Pulse Rate 64 64 Respiratory Rate 19 25 H Blood Pressure 129/74 Pulse Oximetry 97 97 Oxygen Delivery Method 12/03/24 20:30 12/03/24 20:35 12/03/24 20:35 Temperature Pulse Rate 62 Respiratory Rate 13 Blood Pressure 128/77 126/75 Pulse Oximetry 98 Oxygen Delivery Method 12/03/24 20:40 12/03/24 20:40 12/03/24 20:45 Temperature Pulse Rate 67 Respiratory Rate 12 Blood Pressure 118/72 116/69 Pulse Oximetry 97 Oxygen Delivery Method 12/03/24 20:45 12/03/24 20:50 12/03/24 20:50 Temperature Pulse Rate 65 62 Respiratory Rate 25 H 15 Blood Pressure 111/71 Pulse Oximetry 97 98 Oxygen Delivery Method 12/03/24 20:55 12/03/24 20:55 12/03/24 21:00 Temperature Pulse Rate 59 L Respiratory Rate 29 H Blood Pressure 124/75 130/74 Pulse Oximetry 98 Oxygen Delivery Method 12/03/24 21:00 12/03/24 21:05 12/03/24 21:05 Temperature Pulse Rate 59 L 60 Respiratory Rate 22 20 Blood Pressure 130/77 Pulse Oximetry 96 97 Oxygen Delivery Method 12/03/24 21:10 12/03/24 21:10 12/03/24 21:15 Temperature Pulse Rate 60 Respiratory Rate 26 H Blood Pressure 132/80 142/83 H Pulse Oximetry 97 Oxygen Delivery Method 12/03/24 21:15 12/03/24 21:21 12/03/24 21:21 Temperature Pulse Rate 60 63 Respiratory Rate 20 38 H Blood Pressure 112/68 Pulse Oximetry 97 97 Oxygen Delivery Method 12/03/24 21:25 12/03/24 21:25 12/03/24 21:30 Temperature Pulse Rate 68 65 Respiratory Rate 30 H 21 Blood Pressure 127/71 Pulse Oximetry 98 98 Oxygen Delivery Method 12/03/24 21:30 12/03/24 21:36 12/03/24 21:36 Temperature Pulse Rate 62 Respiratory Rate 21 Blood Pressure 139/79 114/62 Pulse Oximetry 96 Oxygen Delivery Method 12/03/24 21:40 12/03/24 21:40 12/03/24 21:45 Temperature Pulse Rate 58 L Respiratory Rate 22 Blood Pressure 122/67 117/76 Pulse Oximetry 96 Oxygen Delivery Method 12/03/24 21:45 12/03/24 21:50 12/03/24 21:50 Temperature Pulse Rate 59 L 60 Respiratory Rate 20 20 Blood Pressure 119/72 Pulse Oximetry 97 97 Oxygen Delivery Method 12/03/24 21:55 12/03/24 21:55 12/03/24 22:00 Temperature Pulse Rate 60 Respiratory Rate 12 Blood Pressure 109/67 123/65 Pulse Oximetry 97 Oxygen Delivery Method 12/03/24 22:00 12/03/24 22:05 12/03/24 22:05 Temperature Pulse Rate 64 62 Respiratory Rate 21 22 Blood Pressure 110/63 Pulse Oximetry 98 98 Oxygen Delivery Method 12/03/24 22:10 12/03/24 22:10 Temperature Pulse Rate 67 Respiratory Rate 25 H Blood Pressure 111/70 Pulse Oximetry 99 Oxygen Delivery Method MDM - Chest Pain Lab Data 12/03/24 14:55 12/03/24 14:55 Labs: Lab Results 12/03/24 12/03/24 12/03/24 Range/Units 14:55 15:57 18:55 WBC 5.8 (4.5-11.0) X10^3/uL RBC 4.29 (4.0-5.2) X10^6/uL Hgb 13.6 (12.0-16.0) g/dL Hct 39.3 (36-46) % MCV 91.7 (80-100) fL MCH 31.6 (26-34) PG MCHC 34.5 (30-36) % RDW 13.5 (11.6-14.8) % Plt Count 251 (150-400) X10^3/uL Neut % (Auto) 58.6 (50-75) % Lymph % (Auto) 32.8 (25-40) % [place] % (Auto) 7.4 (3-14) % Eos % (Auto) 0.4 L (2-4) % Baso % (Auto) 0.8 (0-2) % Neut # (Auto) 3400 (4854-4801) /uL Lymph # (Auto) 1900 (8753-7460) /uL [place] # (Auto) 400 (0-900) /uL Eos # (Auto) 0 (0-450) /uL Baso # (Auto) 0 (0-100) /uL PT 11.5 11.8 (9.4-12.5) SECONDS INR 1.0 1.0 (0.9-1.3) APTT 31 (25.1-36.5) SECONDS D-Dimer < 215 (<500) ng/ml Sodium 137 (137-145) mmol/L Potassium 3.6 (3.4-5.1) mmol/L Chloride 104 (98-107) mmol/L Carbon Dioxide 22 (22-32) mmol/L BUN 13 (7-17) mg/dL Creatinine 0.72 (0.52-1.04) mg/dL Estimated GFR > 60 (>60) mL/min BUN/Creatinine Ratio 18.1 (6-22) Glucose 92 (70-99) mg/dL Calcium 9.3 (8.4-10.2) mg/dL Magnesium 1.9 (1.6-2.3) mg/dL Total Bilirubin 0.8 (0.2-1.3) mg/dL AST 32 (14-36) IU/L ALT 17 (<35) IU/L Alkaline Phosphatase 50 (38-126) U/L Total Creatine Kinase 165 H (30-135) U/L Troponin I 0.415 H* 0.673 H* 0.781 H* (0.01-0.034) ng/mL NT-Pro-B Natriuret Pep 770 H (<125) pg/mL Total Protein 7.9 (6.3-8.2) g/dL Albumin 5.1 H (3.5-5.0) g/dL Globulin 2.8 (1.7-4.1) g/dL Albumin/Globulin Ratio 1.8 (1.0-2.8) Lipase 88 (23-300) U/L // Range/Units 22:13 WBC (4.5-11.0) X10^3/uL RBC (4.0-5.2) X10^6/uL Hgb (12.0-16.0) g/dL Hct (36-46) % MCV (80-100) fL MCH (26-34) PG MCHC (30-36) % RDW (11.6-14.8) % Plt Count (150-400) X10^3/uL Neut % (Auto) (50-75) % Lymph % (Auto) (25-40) % [place] % (Auto) (3-14) % Eos % (Auto) (2-4) % Baso % (Auto) (0-2) % Neut # (Auto) (4309-0044) /uL Lymph # (Auto) (1305-2875) /uL [place] # (Auto) (0-900) /uL Eos # (Auto) (0-450) /uL Baso # (Auto) (0-100) /uL PT (9.4-12.5) SECONDS INR (0.9-1.3) APTT 93 H* D (25.1-36.5) SECONDS D-Dimer (<500) ng/ml Sodium (137-145) mmol/L Potassium (3.4-5.1) mmol/L Chloride (98-107) mmol/L Carbon Dioxide (22-32) mmol/L BUN (7-17) mg/dL Creatinine (0.52-1.04) mg/dL Estimated GFR (>60) mL/min BUN/Creatinine Ratio (6-22) Glucose (70-99) mg/dL Calcium (8.4-10.2) mg/dL Magnesium (1.6-2.3) mg/dL Total Bilirubin (0.2-1.3) mg/dL AST (14-36) IU/L ALT (<35) IU/L Alkaline Phosphatase (38-126) U/L Total Creatine Kinase (30-135) U/L Troponin I (0.01-0.034) ng/mL NT-Pro-B Natriuret Pep (<125) pg/mL Total Protein (6.3-8.2) g/dL Albumin (3.5-5.0) g/dL Globulin (1.7-4.1) g/dL Albumin/Globulin Ratio (1.0-2.8) Lipase (23-300) U/L Imaging Data Chest x-ray: Radiologist's Impression: PROCEDURE: XR CHEST 1V INDICATIONS: Chest Pain TECHNIQUE: One view of the chest was acquired. COMPARISON: None. FINDINGS: Surgical changes and devices: None. Lungs and pleura: Lungs are clear. No pleural effusions or pneumothorax. Mediastinum: Mediastinal contours appear normal. Heart size is normal. Bones and chest wall: No suspicious bony lesions. Overlying soft tissues appear unremarkable. IMPRESSION: No acute pulmonary process. Dictated by: Zoya Washington M.D. on 12/03/2024 at 15:26 Approved by: Zoya Washington M.D. on 12/03/2024 at 15:26 ECG Data Attestation: I personally reviewed and interpreted this ECG as follows: Prior ECG tracings: available for review Interpretation: EKGs 1. Sinus rhythm rate 58 ID interval 144 QRS 80 QTC 433 T-wave inversions noted in lead 1 and aVL no acute ST elevations or depressions no prior to compare Repeat EKGs shows a sinus rhythm rate 57 was normal T-waves no ST changes. EKG #3 sinus rhythm rate [address] elevation or depressions no flipped T-waves possible Q-wave in aVL MDM Narrative Medical decision making narrative: MDM CC: Chest pain Complicating co-morbidities: Healthy Data collected from: Patient and Medical records reviewed: PCP visits no ED visits Differential considered: Acute coronary syndrome diving injury pulmonary embolism Exam documented above, pertinent findings include: Alert well-appearing 54-year-old female appears nontoxic pain is nonreproducible breath sounds are clear Lab Test results independently reviewed as above. Pertinent findings: Troponin positive 0.415-->0.673-->0.781 CBC no leukocytosis no anemia Electrolytes within normal limits creatinine 0.72 D-dimer is less than 215 Independently reviewed EKG as above EKGs 1. Has some T-wave inversions in lateral leads EKGs 2. Shows resolution of flipped T-waves EKGs 3. Shows probable small Q-wave in AVF with T-wave inversion in Imaging studies independently reviewed: Chest x-ray no acute cardiopulmonary process Consultations: 1545 Dr. Salcedo, cardiology updated patient's symptoms test results recommends repeat troponin 1655 Dr. Juventino Marrufo, hyperbaric physician at [facility], says this is not related to diving, no need for hyperbaric chamber 1700 Dr. Lopez, cardiology at [facility] agrees with heparin drip and transfer 2030 Dr. Tierney, hospitalist at accepts patient Treatments: Aspirin Heparin drip Nitroglycerin sublingual times Re-evaluations: Patient did have chest pain relief after the 3rd nitro. Discussion: Patient healthy 54-year-old female without any kind of heart risk factors presents today with chest pain. She is found to have elevated troponins and they continue to her eyes. Initially she did have some inverted T-waves but that has since resolved. Pain improved with nitroglycerin. She went scuba diving yesterday but it was not a long or complicated she had no problem coming up. Confirmed with hyperbaric That this is not related. Patient will be transferred [facility]2 [facility] when bed becomes available Critical Care Time Critical Care Time Critical Care Time: Yes Total Critical Care Time: 35 Attestation: The high probability of a clinically significant, sudden or life threatening deterioration of the [cardiovascular] system(s) required my full and direct attention, intervention and personal management. The aggregate critical care time was 35 minutes. This time is in addition to time spent performing reported procedures but includes the following: [x] Data Review and interpretation [x] Patient assessment and monitoring of vital signs [x] Documentation [x] Medication orders and management Discharge Plan [facility]: Acute non-ST elevation myocardial infarction (NSTEMI) Prescriptions: No Action semaglutide 0.25 mg or 0.5 mg (2 mg/3 mL) pen injector 0.25 mg SUBCUT QWEEK Qty: 6 0RF Rx Instructions: for 4 weeks estradiol [Estrace] 0.01 % (0.1 mg/gram) cream 1 g vaginal DAILY Qty: 42.5 3RF Rx Instructions: place 1cm (1g) of cream as directed three times weekly for 2 weeks, then two times weekly for 2 weeks, then once weekly thereafter estradiol [Vivelle-Dot] 0.05 mg/24 hr patch semiweekly 1 patch transdermal 2XW Qty: 24 3RF Rx Instructions: apply 1 patch for 3 days alternating with 1 patch for 4 days each week progesterone micronized 200 mg capsule 200 mg PO BEDTIME 30 Days Qty: 90 3RF Referrals: Lexy Zimmerman MD [Primary Care Provider, Family Practice]
--- NOTE | 2024-12-03 15:36 | EKG_ITS ---
[facility] [address] [place] [id number] Test Date: 2024-12-03 Pat Name: Shikha Contreras Department: [facility] Room: Gender: Female Claims Account Manager: HAKAN : 1970 Requested By: Order Number: [id number] Reading MD: Nikhil Meneses Measurements Intervals [place] Rate: 57 P: 53 [place]: 136 QRS: 66 QRSD: 80 T: 57 QT: 452 QTc: 439 Interpretive Statements Sinus bradycardia Electronically Signed On 12-05-2024 8:12:53 PDT by Nikhil Meneses
[2024-12-03] MEDS: HEPARIN DRIP 25,000 UNIT/500 ML IV.SOLN 14.7 UNIT IV (16:15)
[2024-12-03] MEDS: HEPARIN 5,000 UNIT/ML VIAL 3500 UNIT IV (16:16)
[2024-12-03 16:17] LABS: INR 1.0 (0.9-1.3); Prothrombin Time 11.8 SECONDS (9.4-12.5)
[2024-12-03] MEDS: NITROGLYCERIN 0.4 MG SL TAB SL ×3 (16:23→16:37)
[2024-12-03 16:31] LABS: Troponin I 0.673 ng/mL (0.01-0.034)
--- NOTE | 2024-12-03 16:43 | PC.NURSE ---
Three nitro given, CP went from 5/10 to 4/10 to 4/10. Provider aware.
--- NOTE | 2024-12-03 18:55 | EKG_ITS ---
[facility] [address] [address] Test Date: 2024-12-03 Pat Name: Shikha Contreras Department: [facility] Room: Gender: Female Social Media Manager: HAKAN : 1970 Requested By: Order Number: [id number] Reading MD: Nikhil Meneses Measurements Intervals [place] Rate: 59 P: 65 [place]: 134 QRS: 72 QRSD: 80 T: 67 QT: 448 QTc: 443 Interpretive Statements Sinus bradycardia Electronically Signed On 12-05-2024 8:13:10 PDT by Nikhil Meneses
--- NOTE | 2024-12-03 19:25 | PC.NURSE ---
Pt reports discomfort has moved to L chest. Pt in good spirits.
[2024-12-03 19:42] LABS: Troponin I 0.781 ng/mL (0.01-0.034)
--- NOTE | 2024-12-03 20:16 | PC.NURSE ---
Pt back from restroom. Still reports feeling better
--- NOTE | 2024-12-03 21:59 | PC.NURSE ---
Attempted to call Kacy Hayward for report.
[2024-12-03 22:29] LABS: PTT Partial Thromboplastin Tim 93 SECONDS (25.1-36.5)
[2024-12-03 22:43] LABS: Troponin I 0.704 ng/mL (0.01-0.034)
== END 2024-12-03 22:23 | disposition short-term general hospital (02) ==
PROVIDERS: Emergency Medicine; Emergency Provider Emergency Medicine; Family Provider Family Medicine; PCP Family Medicine
DX: I21.4 Non-ST elevation (NSTEMI) myocardial infarction (principal); R07.9 Chest pain, unspecified; R06.02 Shortness of breath
CPT/HCPCS: 36415; 71045; 80053; 82550; 83690; 83735; 83880; 84484; 85025; 85379; 85610; 85730; 93005; 96365; 96366; 96375; 99284; 99291; J1644

== ENCOUNTER → 2024-12-17 12:00 | Outpatient (CLI) | payer OTHER, SELFPAY ==
--- NOTE | 2024-12-17 12:01 | DI.ECHO.S_ITS ---
[facility] : : [id number] : : [place] : : [id number] : : Phone: [phone] Echocardiogram Report + + :Name: ARELY COUGHLIN Study Date: 12/17/2024 Height: 62 in : :Hospital ReadingLocation: Weight: 135 lb : : Gender: Female BSA: 1.6 m2 : :: 1970 Age: 54 yrs BP: 121/78 mmHg: :Reason For Study: NSTEMI : :Ordering Physician: STELLA, : :COLTON Villatoro Performed By: Ulises Sorensen : :Referring: COLTON DOUGLAS : + + Interpretation Summary The ejection fraction is estimated to be 60-65%. There are no focal wall motion abnormalities. Diastolic parameters suggest probable normal left ventricular diastolic function and normal filling pressures. The right ventricle is normal in size and function. The right ventricular systolic pressure is estimated to be at least 32 mmHg based on an estimated right atrial pressure of 3 mm Hg. There is mild to moderate mitral regurgitation. There is mild tricuspid regurgitation. There is a small loculated pericardial effusion. Procedure: A two-dimensional transthoracic echocardiogram with color flow and Doppler was performed. The study quality was technically good. There is no prior echocardiogram noted for this patient. The patient was in normal sinus rhythm during the exam. Left Ventricle: The left ventricle is normal in size. There is normal left ventricular wall thickness. There is no ventricular septal defect visualized. The ejection fraction is estimated to be 60-65%. There are no focal wall motion abnormalities. Diastolic parameters suggest probable normal left ventricular diastolic function and normal filling pressures. Right Ventricle: The right ventricle is normal in size and function. Atria: The left atrial size is normal. Right atrial size is normal. There is no Doppler evidence for an interatrial shunt. Mitral Valve: The mitral valve leaflets appear normal. There is no evidence of stenosis, fluttering, or prolapse. There is mild to moderate mitral regurgitation. Aortic Valve: The aortic valve is trileaflet. The aortic valve opens well. No aortic regurgitation is present. Tricuspid Valve: The tricuspid valve leaflets are thickened and/or calcified, but open well. There is mild tricuspid regurgitation. The right ventricular systolic pressure is estimated to be at least 32 mmHg based on an estimated right atrial pressure of 3 mm Hg. Pulmonic Valve: The pulmonic valve is not well seen, but is grossly normal. There is trace pulmonic regurgitation. Great Vessels: The aortic root is normal size. The dimensions of the ascending aorta are normal. The pulmonary artery is normal size. The IVC is of normal diameter and collapses greater than 50% with a sniff. This suggests a low right atrial pressure of 3 mm Hg. Pericardium/ Pleura There is a small loculated pericardial effusion. There is no pleural effusion. MMode/2D Measurements & Calculations LVIDd: 5.4 cm LVOT diam: 1.9 cm LVIDs: 3.5 cm Ao root diam: 2.7 cm FS: 35.4 % asc Aorta Diam: 3.0 cm EPSS: 0.57 cm IVSd: 0.62 cm LVPWd: 0.75 cm LV peña. diameter/BSA (cm/m^2): 3.3 LV sys. diameter/BSA (cm/m^2): 2.1 LA A2 area: 17.0 cm2 RA long axis: 4.8 cm LA A4 area: 18.9 cm2 RA area: 13.7 cm2 LA length (vol): 5.7 cm RA vol: 33.2 ml LA vol: 48.0 ml RA : 20.5 ml/m2 LA vol index: 29.7 ml/m2 IVC diam: 1.9 cm RVD1 (basal): 3.4 cm RVD2 (mid): 2.2 cm TAPSE: 3.0 cm Doppler Measurements & Calculations Ao V2 max: 159.2 cm/sec LVOT Max Jayme: 100.8 cm/sec Ao V2 mean: 110.6 cm/sec LV V1 max P.1 mmHg Ao max P.1 mmHg LV V1 VTI: 23.1 cm Ao mean P.3 mmHg MILLICENT(I,D): 1.9 cm2 Ao V2 VTI: 34.9 cm MILLICENT(V,D): 1.8 cm2 sev ratio: 0.66 MILLICENT indexed to BSA (cm^2/m^2): 1.2 MV E max jayme: 108.0 cm/sec TR max jayme: 269.7 cm/sec MV A max jayme: 61.2 cm/sec TR max P.1 mmHg MV E/A: 1.8 PA V2 max: 104.2 cm/sec Med Peak E' Jayme: 9.0 cm/sec PA V2 mean: 76.2 cm/sec E/E' med: 12.0 PA mean P.5 mmHg Lat Peak E' Jayme: 11.2 cm/sec PA pr(Accel): 44.7 mmHg E/E' lat: 9.6 E/e' average: 10.8 MV dec time: 0.22 sec SV(LVOT): 67.1 ml Reading Physician:02:08 PM
== END ==
LOC: ECHO 12:01
PROVIDERS: PCP Family Medicine; Referring Provider Family Medicine; Visit Provider Family Medicine
DX: I21.4 Non-ST elevation (NSTEMI) myocardial infarction (principal); I08.1 Rheumatic disorders of both mitral and tricuspid valves
CPT/HCPCS: 93306